=== PATIENT | male | born 1975 | race African-American/Black ===

== ENCOUNTER 2016-12-20 02:25 | Emergency (ER) | payer BC ==
[~2016-12-20] VITALS: Ht 177.8 cm; Wt 105.8 kg
[~2016-12-20 02:25] MED LIST: ATOR10TA PO; DILT180C69 PO
[2016-12-20] MEDS ORDERED: KETOROLAC 60MG/2ML VIAL IM ONE (04:30)
[2016-12-20 04:55] VITALS: BP 161/108
== END 2016-12-20 04:55 | disposition home or self-care (01) ==
LOC: ER 03:00
DX: S76.912A Strain of unspecified muscles, fascia and tendons at thigh level, left thigh, initial encounter (principal); R10.9 Unspecified abdominal pain; Y93.G3 Activity, cooking and baking; Y92.090 Kitchen in other non-institutional residence as the place of occurrence of the external cause; W01.0XXA Fall on same level from slipping, tripping and stumbling without subsequent striking against object, initial encounter; Z88.0 Allergy status to penicillin
CPT/HCPCS: 96372; 99283; J1885; Z7610

== ENCOUNTER 2025-09-13 01:06 | Emergency (ER) | payer SELFPAY ==
[~2025-09-13] VITALS: Ht 177.8 cm; Wt 83.2 kg
[~2025-09-13 01:06] MED LIST changes: +DILT180C66 PO; -DILT180C69 PO
[2025-09-13 01:20] VITALS: O2SAT 100
[2025-09-13] MEDS: BACITRACIN ZINC OINT UDPKT TOP ONE (02:35)
[2025-09-13] MEDS: TETANUS, DIPHTHERIA, PERTUSSIS VAC/PF 0.5ML (>10YR OLD) IM ONE (02:36)
[2025-09-13] MEDS ORDERED: BO1 TP (03:07)
[2025-09-13 03:30] VITALS: BP 189/126; PULSE 56; RESP 16; TEMP 36.8; O2SAT 100
== END 2025-09-13 03:31 | disposition home or self-care (01) ==
LOC: ER 01:06
DX: S60.041A Contusion of right ring finger without damage to nail, initial encounter (principal); I10 Essential (primary) hypertension; Z79.899 Other long term (current) drug therapy; Z88.0 Allergy status to penicillin
CPT/HCPCS: 29130; 73140; 90471; 90715; 99283